=== PATIENT | female | born 1950 | race Caucasian/White ===

== ENCOUNTER 2023-09-25 11:08 | Outpatient (CLI) | payer MEDICARE | END 2023-09-25 23:59 | disposition critical access hospital (66) | LOC: EMS 11:08 | DX: R11.2 Nausea with vomiting, unspecified (principal); R05.9 Cough, unspecified; R06.00 Dyspnea, unspecified | CPT/HCPCS: A0425; A0427 ==

== ENCOUNTER 2023-09-25 12:05 | Emergency (ER) | payer MEDICARE, OTHER ==
--- NOTE | 2023-09-25 12:12 | ED Physician Documentation ---
History of Present Illness - Stated complaint Stated Complaint: SOA/COUGH - Additonal information Additional information: 72-year-old female with no pertinent past medical history presents emergency department for cough nausea vomiting. Patient says this morning she started to notice sudden onset nausea with vomiting followed by persistent cough. Yesterday she felt totally fine and normal she said this is never happened before no fevers or chills. She was brought in via EMS she received a total of 4 mg IV Zofran prior to arrival. She says now her nausea is still there but no emesis since she is arrived no abdominal pain no chest pain or shortness of breath. She said she felt more fatigued yesterday than she normally does and went to bed early. Pt says she was not the one who called 911 today, her friend called her because she was worried about her nausea and vomiting. PD PAST MEDICAL HISTORY - Present Medications Home Medications: Ambulatory Orders Medication Instructions Recorded Confirmed Ondansetron Odt [Zofran Odt] 4 mg TL Q6H PRN #10 tablet 09/25/23 - Allergies Allergies/Adverse Reactions: Allergies Allergy/AdvReac Type Severity Reaction Status Date / Time acetaminophen [From Percocet] Allergy Rash Verified 09/25/23 12:24 oxycodone [From Percocet] Allergy Rash Verified 09/25/23 12:24 PD ED PE NORMAL - Vitals Vital signs reviewed: Yes - General General: Alert and oriented X 3, No acute distress, Other (disheveled, ill appearing, slightly cachectic) - HEENT HEENT: Atraumatic, PERRL - Cardiac Cardiac: RRR, No murmur, No gallop, Strong equal pulses - Respiratory Respiratory: No respiratory distress, Clear bilaterally - Abdomen Abdomen: Normal bowel sounds, Soft, Non tender, Non distended, No organomegaly - Back Back: No CVA TTP - Derm Derm: Normal color, Warm and dry, No rash - Extremities Extremities: No edema - Neuro Neuro: Alert and oriented X 3, Normal speech Results - Vitals Vitals: Vital Signs - 24 hr 09/25/23 09/25/23 09/25/23 12:07 13:14 15:14 Temperature 37.7 C Heart Rate 93 97 78 Respiratory 16 17 22 Rate Blood Pressure 116/67 122/82 H O2 Saturation 97 93 98 Oxygen O2 Source Room air - EKG (time done) 1233 EKG releavant findings:: EKG personally interpreted by author of this note. Relevant findings are: Rate: Rate (enter#) (93) Rhythm: NSR Orient: Normal Intervals: Normal SD, QRS normal. No: Prolonged QT Ischemia: ST depression Computer interpretation: Agree with computer - Labs Labs: Laboratory Tests 09/25/23 09/25/23 09/25/23 12:20 12:25 12:25 WBC 10.6 RBC 3.54 L Hgb 10.9 L Hct 33.4 L MCV 94.4 MCH 30.8 MCHC 32.6 RDW 15.2 H Plt Count 111 L MPV 11.3 H Neut # (Auto) 9.4 H Lymph # (Auto) 0.4 L [place] # (Auto) 0.7 Eos # (Auto) 0.0 Baso # (Auto) 0.0 Absolute Nucleated RBC 0.00 Nucleated RBC % 0.0 Sodium 134 L Potassium 3.7 Chloride 105 Carbon Dioxide 24 Anion Gap 5.0 L BUN 24 H Creatinine 0.9 Estimated GFR (MDRD) 61 L Glucose 196 H Calcium 8.4 L Magnesium 1.4 L Total Bilirubin 0.9 AST 24 ALT 22 Alkaline Phosphatase 64 Total Protein 5.6 L Albumin 3.6 Globulin 2.0 L Albumin/Globulin Ratio 1.8 Lipase < 10 L Nasal Adenovirus (PCR) NOT DETECTED Nasal B. parapertussis DNA (PCR) NOT DETECTED Nasal Coronavir 229E PCR NOT DETECTED Nasal Coronavir HKU1 PCR NOT DETECTED Nasal Coronavir NL63 PCR NOT DETECTED Nasal Coronavir OC43 PCR NOT DETECTED Nasal Enterovir/Rhinovir PCR NOT DETECTED Nasal Influenza B PCR NOT DETECTED Nasal Influenza A PCR NOT DETECTED Nasal Parainfluen 1 PCR NOT DETECTED Nasal Parainfluen 2 PCR NOT DETECTED Nasal Parainfluen 3 PCR NOT DETECTED Nasal Parainfluen 4 PCR NOT DETECTED Nasal RSV (PCR) NOT DETECTED Nasal B.pertussis DNA PCR NOT DETECTED Nasal C.pneumoniae (PCR) NOT DETECTED Mau Human Metapneumo PCR NOT DETECTED Nasal M.pneumoniae (PCR) NOT DETECTED Nasal SARS-CoV-2 (PCR) NOT DETECTED Ethyl Alcohol 09/25/23 12:25 WBC RBC Hgb Hct MCV MCH MCHC RDW Plt Count MPV Neut # (Auto) Lymph # (Auto) [place] # (Auto) Eos # (Auto) Baso # (Auto) Absolute Nucleated RBC Nucleated RBC % Sodium Potassium Chloride Carbon Dioxide Anion Gap BUN Creatinine Estimated GFR (MDRD) Glucose Calcium Magnesium Total Bilirubin AST ALT Alkaline Phosphatase Total Protein Albumin Globulin Albumin/Globulin Ratio Lipase Nasal Adenovirus (PCR) Nasal B. parapertussis DNA (PCR) Nasal Coronavir 229E PCR Nasal Coronavir HKU1 PCR Nasal Coronavir NL63 PCR Nasal Coronavir OC43 PCR Nasal Enterovir/Rhinovir PCR Nasal Influenza B PCR Nasal Influenza A PCR Nasal Parainfluen 1 PCR Nasal Parainfluen 2 PCR Nasal Parainfluen 3 PCR Nasal Parainfluen 4 PCR Nasal RSV (PCR) Nasal B.pertussis DNA PCR Nasal C.pneumoniae (PCR) Mau Human Metapneumo PCR Nasal M.pneumoniae (PCR) Nasal SARS-CoV-2 (PCR) Ethyl Alcohol < 10.0 - Rads (name of study) Chest x-ray Relevant Findings:: Final report received, EMP independent interpretation of test, Other (Congestive heart failure) PD Medical Decision Making - ED course ED course: 72-year-old female presents emergency department for 1 day of nausea vomiting. She said no nausea or emesis since has been here still been able to tolerate p.o.'s without any difficulty. Patient denies any abdominal pain or chest pain since she has been here. Labs have been completed she has no leukocytosis making me less worried about possible infection she is afebrile and hemodynamically stable. She has mild anemia, hemoglobin 10.9 neutrophils slightly elevated at 9.4. Her sodium was minimally suppressed at 134 BUN slightly elevated at 24, hypomagnesemia at 1.4. She was given 1 L IV fluids and 50 mg IV magnesium she is given some IV Zofran to help with her nausea. Respiratory panel negative. Chest x-ray confirms that she has congestive heart failure patient reports that she has never been told this before. She does have a primary care provider and she was told that she should follow-up with her primary care provider for further evaluation and workup for her congestive heart failure. Patient is mentating well eating and drinking without any difficulty. Her friend was notified that she is safe for discharge at this point in time patient was given return precautions and told to follow-up with her primary care provider soon as possible. I am not entirely positive what caused this episode of nausea and vomiting given that her respiratory panel is negative but she has not had any nausea or vomiting since she has been here and no abdominal pain I considered abdominal CT but patient denies any abdominal pain throughout this whole process. Departure - Departure Disposition: 01 Home, Self Care Clinical Impression: Hypomagnesemia Nausea & vomiting Qualifiers: Vomiting type: unspecified Qualified Code(s): R11.2 - Nausea with vomiting, unspecified CHF (congestive heart failure) Qualifiers: Heart failure type: unspecified Heart failure chronicity: chronic Qualified Code(s): I50.9 - Heart failure, unspecified Instructions: ED Nausea Vomiting Prescriptions: Ondansetron Odt [Zofran Odt] 4 mg TL Q6H PRN #10 tablet PRN Reason: Nausea / Vomiting Comments: Marlee thank you for coming to the emergency department and for trusting us with your care. Given that your nausea has fully resolved you are not endorsing any chest pain shortness of breath or any abdominal pain I do not believe that there is any further workup indicated at this time. We did complete a chest x-ray which shows that you do have something called congestive heart failure I want you to follow-up with your primary care provider to see if there is any outpatient further workup indicated or needed for this such as a possible echocardiogram or getting started on medications to help with this. I sent a prescription of Zofran to help with any lingering nausea that you may be experiencing to your preferred pharmacy. Please come back to the emergency depa rtment if you are starting to develop any chest pain, shortness of breath, nausea vomiting that is recurrent even despite taking Zofran or any other concerning symptoms. Forms: PCP List Discharge Date/Time: 09/25/23 15:13
[2023-09-25] MEDS: SODIUM CHLORIDE 0.9% 1,000 ML IV ONE (12:20)
[2023-09-25 12:33] LABS: BASOPHILS % (AUTO) 0.1 %; HCT - HEMATOCRIT 33.4 % (37.0-47.0); HGB - HEMOGLOBIN 10.9 g/dL (12.0-16.0); LYMPHOCYTES # (AUTO) 0.4 10^3/uL (1.5-3.5); LYMPHOCYTES % (AUTO) 3.3 %; MEAN CORPUSCULAR HEMOGLOBIN 30.8 pg (27.0-31.0); MEAN CORPUSCULAR HGB CONC 32.6 g/dL (32.0-36.0); MEAN CORPUSCULAR VOLUME 94.4 fL (81.0-99.0); MEAN PLATELET VOLUME 11.3 fL (7.9-10.8); MONOCYTES # (AUTO) 0.7 10^3/uL (0.0-1.0); NEUTROPHILS # (AUTO) 9.4 10^3/uL (1.5-6.6); NEUTROPHILS % (AUTO) 89.1 %; PLT - PLATELET COUNT 111 10^3/uL (130-450); RED BLOOD COUNT 3.54 10^6/uL (4.20-5.40); RED CELL DISTRIBUTION WIDTH 15.2 % (12.0-15.0); WHITE BLOOD COUNT 10.6 x10^3/uL (4.8-10.8)
[2023-09-25] MEDS: ONDANSETRON 4 MG/2 ML VIAL IVP STA (12:39)
[2023-09-25 12:40] LABS: MAGNESIUM 1.4 mg/dL (1.7-2.3)
[2023-09-25 12:46] LABS: ALBUMIN 3.6 g/dL (3.2-5.5); ALBUMIN/GLOBULIN RATIO 1.8 (1.0-2.2); ALKALINE PHOSPHATASE 64 IU/L (42-121); ALT ALANINE AMINOTRANSFERASE 22 IU/L (10-60); AST ASPARTATE AMINOTRANSFERASE 24 IU/L (10-42); BILIRUBIN,TOTAL 0.9 mg/dL (0.2-1.0); BUN - BLOOD UREA NITROGEN 24 mg/dL (6-20); CALCIUM 8.4 mg/dL (8.5-10.3); CARBON DIOXIDE - CO2 24 mmol/L (21-32); CHLORIDE 105 mmol/L (101-111); CREATININE 0.9 mg/dL (0.6-1.3); GFR - MDRD 61 (>89); GLUCOSE 196 mg/dL (74-104); LIPASE < 10 U/L (11-82); POTASSIUM 3.7 mmol/L (3.5-4.5); SODIUM 134 mmol/L (135-145); TOTAL PROTEIN 5.6 g/dL (6.4-8.9)
[2023-09-25] MEDS: MAGNESIUM SULFATE 2 GRAM 2 GM/50 ML BAG IV ONE (13:07)
--- NOTE | 2023-09-25 13:09 | XRAY Report ---
PROCEDURE: Chest 2V INDICATIONS: cough, SOA TECHNIQUE: 2 views of the chest were acquired. COMPARISON: None. FINDINGS: Surgical changes and devices: Mammoplasties. Lungs and pleura: No pleural effusions or pneumothorax. Interstitial pulmonary edema. Mediastinum: Mediastinal contours appear normal. Heart size is normal. Bones and chest wall: No suspicious bony lesions. Overlying soft tissues appear unremarkable. IMPRESSION: Congestive heart failure.. Reviewed by: Kyle Grijalva MD on 09/25/2023 1:08 PM PDT Approved by: Kyle Grijalva MD on 09/25/2023 1:08 PM PDT Station ID: [id number]
[2023-09-25 13:21] LABS: B. PARAPERTUSSIS- RESP PCR PAN NOT DETECTED; B. PERTUSSIS- RESP PCR PANEL NOT DETECTED; C. PNEUMONIAE- RESP PCR PANEL NOT DETECTED; CORONAVIRUS 229E-RESP PCR NOT DETECTED; CORONAVIRUS HKU1-RESP PCR NOT DETECTED; CORONAVIRUS NL63-RESP PCR NOT DETECTED; CORONAVIRUS OC43-RESP PCR NOT DETECTED; HUMAN METAPNEUMOVIRUS NOT DETECTED; INFLUENZA A- RESP PCR PANEL NOT DETECTED; INFLUENZA B - RESP PCR PANEL NOT DETECTED; M. PNEUMONIAE- RESP PCR PANEL NOT DETECTED; PARAINFLUENZA VIRUS 1 NOT DETECTED; PARAINFLUENZA VIRUS 2 NOT DETECTED; PARAINFLUENZA VIRUS 3 NOT DETECTED; PARAINFLUENZA VIRUS 4 NOT DETECTED; RHINOVIRUS/ENTEROVIRUS NOT DETECTED; RSV- RESP PCR PANEL NOT DETECTED; SARS-CoV-2 -RESP PCR PANEL NOT DETECTED
[2023-09-25 15:16] VITALS: BP 122/82; O2SAT 98
== END 2023-09-25 15:13 | disposition home or self-care (01) ==
LOC: ED 12:05
DX: E83.42 Hypomagnesemia (principal); R11.2 Nausea with vomiting, unspecified; I50.9 Heart failure, unspecified; D64.9 Anemia, unspecified; Z79.899 Other long term (current) drug therapy
CPT/HCPCS: 36415; 71046; 80053; 83690; 83735; 85025; 87633; 93005; 96374; 96375; 99284; G0480; 82077